=== PATIENT | female | born 1960 | race Caucasian/White ===

== ENCOUNTER 2016-08-27 18:01 | Emergency (ER) | payer SELFPAY ==
[~2016-08-27] VITALS: Ht 157.5 cm; Wt 88.0 kg
[~2016-08-27 18:01] MED LIST: APR50 PO; BENA40TA41 PO; CARV6.2579 PO; CLON0.2T12 PO; DOXY-220 PO; FAMO-95 PO; GABA300C16 PO; HYDR-3498 PO; MIN25 PO; NOVO7030 SC; ONDA-43 PO; RIFA150C2 PO; ZOC20 PO
[2016-08-27 18:56] VITALS: Ht 157.5 cm; Wt 88.0 kg
== END 2016-08-28 00:09 | disposition left against medical advice (07) ==
LOC: E/R 18:01
DX: Z53.21 Procedure and treatment not carried out due to patient leaving prior to being seen by health care provider (principal)

== ENCOUNTER 2017-04-09 13:00 | Emergency (ER) | payer OTHER ==
[~2017-04-09] VITALS: Wt 87.5 kg
[~2017-04-09 13:00] MED LIST changes: -APR50 PO; +HYDR-3672 PO; -MIN25 PO; +MINO2.5T16 PO; +SIMV20TA2 PO; -ZOC20 PO
[2017-04-09] MEDS ORDERED: KETOROLAC 30 MG INJ IV STA (16:37)
[2017-04-09] MEDS ORDERED: ONDANSETRON 4 MG INJ IV STA (16:37)
[2017-04-09] MEDS ORDERED: SOD CHLORIDE 0.9% 1,000 ML IV STA (16:37)
[2017-04-09] MEDS ORDERED: BEN50 PO (18:53)
[2017-04-09] MEDS ORDERED: FOLI-49 PO (18:53)
[2017-04-09] MEDS ORDERED: CALC667C PO (18:53)
[2017-04-09] MEDS ORDERED: CHOL400C11 PO (18:55)
--- NOTE | 2017-04-09 19:28 | ERD ---
ER Documentation Chief Complaint Chief Complaint abd pain rad down into legs HPI This 49-year-old female presents with moderately severe lower abdominal pain that began today. She does not have back pain over the payee radiates down the top of both legs. Taking her blood pressure medication normally. Her blood pressures almost always high. Denies nausea and vomiting. ROS All systems reviewed and are negative except as per history of present illness. Medications Home Meds Active Scripts Hydrocodone/Acetaminophen ([place] 5-325 Tablet) 1 Each Tablet, 1 EACH PO Q6, #10 TAB Prov:NANCY LIM DO 04/09/17 Polyethylene Glycol* (Miralax*) 17 Gm Powd.pack, 17 GM PO DAILY, #7 Prov:NANCY LIM DO 04/09/17 Nitrofurantoin Monohyd Macrocr* (Macrobid*) 100 Mg Capsr, 100 MG PO HS for 5 Days, CAP Prov:NANCY LIM DO 04/09/17 Ciprofloxacin Hcl* (Ciprofloxacin Hcl*) 500 Mg Tablet, 500 MG PO BID for 5 Days , TAB Prov:NANCY LIM DO 04/09/17 Famotidine* (Pepcid* AC) 20 Mg Tab, 20 MG PO DAILY for 28 Days, BOT Prov:LIZET LINARES MD 02/04/15 Reported Medications Tramadol Hcl* (Ultram*) 50 Mg Tablet, 50 MG PO NEEDED Y for PAIN, TAB 04/09/17 Ondansetron Hcl* (Zofran*) 4 Mg Tab, 4 MG PO NEEDED Y for NAUSEA AND OR VOMITING, TAB 04/09/17 Hydralazine Hcl* (Hydralazine Hcl*) 25 Mg Tab, 25 MG PO QID, #60 TAB 04/09/17 Clonidine Hcl* (Clonidine Hcl*) 0.2 Mg Tablet, 0.2 MG PO TID Y for HTN, TAB 04/09/17 Cholecalciferol (Vitamin D3) 400 Unit Capsule, 400 UNIT PO BID, CAP 04/09/17 Diphenhydramine Hcl* (Benadryl*) 50 Mg Cap, 50 MG PO NEEDED Y for ITCHING, CAP 04/09/17 Folic Acid* (Folic Acid*) 1 Mg Tablet, 1 MG PO DAILY, TAB 04/09/17 Calcium Acetate* (Calcium Acetate*) 667 Mg Capsule, 2001 MG PO WITH MEALS, #30 CAP 04/09/17 Benazepril Hcl* (Benazepril Hcl*) 40 Mg Tablet, 40 MG PO DAILY, TAB 12/21/14 Carvedilol* (Carvedilol*) 6.25 Mg Tablet, 6.25 MG PO BID, TAB 12/21/14 Simvastatin (Simvastatin) 20 Mg Tablet, 20 MG PO HS, TAB 12/21/14 Insulin Isophan/Regular (Humulin 70/30) 100 Units/Ml Susp, 20 UNIT SC BID, EA 12/21/14 Gabapentin* (Gabapentin*) 300 Mg Capsule, 300 MG PO TID 08/03/13 Discontinued Reported Medications Hydralazine Hcl* (Hydralazine Hcl*) 50 Mg Tab, 50 MG PO TID, TAB 02/01/15 Discontinued Scripts Ondansetron Hcl* (Zofran*) 4 Mg Tab, 4 MG PO Q4H Y for NAUSEA AND OR VOMITING for 14 Days, TAB Prov:LIZET LINARES MD 02/04/15 Minoxidil* (Lonitin*) 2.5 Mg Tab, 5 MG PO DAILY for 30 Days, TAB Prov:LIZET LINARES MD 02/04/15 Clonidine Hcl* (Catapres*) 0.2 Mg Tab, 0.2 MG PO TID for 28 Days, BOTTLE Prov:LIZET LINARES MD 02/04/15 Hydrocodone Bit-Acetaminophen* ([place]*) 5-325 Mg Tab, 1 TAB PO Q6 Y for severe pain , #40 TAB Prov:MARIAA HERNANDEZ MD 01/24/15 Rifampin* (Rifampin*) 150 Mg Capsule, 150 MG PO BID for MRSA bacteremia , #28 CAP Prov:MARIAA HERNANDEZ MD 01/24/15 Doxycycline Monohydrate* (Doxycycline Monohydrate*) 100 Mg Tablet, 100 MG PO BID for MRSA septic Right shoulder , #28 TAB Prov:MARIAA HERNANDEZ MD 01/24/15 Allergies Allergies: Coded Allergies: amlodipine (Verified Allergy, Unknown, 04/09/17) metformin (Verified Allergy, Unknown, 04/09/17) PMhx/Soc History of Surgery: Yes (APPENDECTOMY, CHOLECYSTECTOMY, PERMA-CATH) Anesthesia Reaction: No Hx Neurological Disorder: Yes (neuropathy ) Hx Respiratory Disorders: No Hx Cardiac Disorders: Yes (HTN, hypercholesterolemia ) Hx Psychiatric Problems: Yes (depression ) Hx Miscellaneous Medical Probl: No Hx Alcohol Use: No Hx Substance Use: No Hx Tobacco Use: No Smoking Status: Never smoker Physical Exam Vitals Vital Signs Date Time Temp Pulse Resp B/P Pulse Ox O2 Delivery O2 Flow Rate FiO2 04/09/17 21:23 60 19 198/75 97 Room Air 04/09/17 20:35 78 18 177/86 98 Room Air 04/09/17 18:30 97.8 69 19 138/72 98 Room Air 04/09/17 16:29 97.3 63 20 141/68 99 Room Air 04/09/17 13:04 98.6 72 20 147/91 98 Physical Exam Const: [] Mild to moderate distress, appears uncomfortable Head: Atraumatic Eyes: Normal Conjunctiva ENT: Normal External Ears, Nose and Mouth. Neck: Full range of motion..~ No meningismus. Resp: Clear to auscultation bilaterally Cardio: Regular rate and rhythm, no murmurs Abd: Soft, tenderness in the mid lower abdomen, left lower quadrant and right lower quadrant, mild voluntary guarding with no rebound, non distended. Normal bowel sounds Skin: No petechiae or rashes Back: No midline or flank tenderness Ext: No cyanosis, or edema Neur: Awake and alert and oriented 3, no focal deficits. Psych: Normal Mood and Affect Result Diagram: 04/09/17174904/09/171749 Results 24 hrs Laboratory Tests Test 04/09/17 16:50 04/09/17 17:50 Urine Color YELLOW Urine Clarity CLEAR Urine pH 7.0 Urine Specific [employer] 1.015 Urine Ketones NEGATIVEmg/dL Urine Nitrite NEGATIVEmg/dL Urine Bilirubin NEGATIVEmg/dL Urine Urobilinogen NEGATIVEmg/dL Urine Leukocyte Esterase TRACELeu/ul Urine Microscopic RBC 4/HPF Urine Microscopic WBC 5/HPF Urine Squamous Epithelial Cells FEW/HPF Urine Hemoglobin 1+mg/dL Urine Glucose 2+mg/dL Urine Total Protein 3+mg/dl White Blood Count 8.410^3/ul Red Blood Count 3.5710^6/ul Hemoglobin 10.8g/dl Hematocrit 35.5% Mean Corpuscular Volume 99.4fl Mean Corpuscular Hemoglobin 30.3pg Mean Corpuscular Hemoglobin Concent 30.4g/dl Red Cell Distribution Width 15.5% Platelet Count 04821^3/UL Mean Platelet Volume 10.4fl Neutrophils % 52.1% Lymphocytes % 35.0% Monocytes % 7.2% Eosinophils % 5.1% Basophils % 0.4% Nucleated Red Blood Cells % 0.0/100WBC Neutrophils # 4.410^3/ul Lymphocytes # 2.910^3/ul Monocytes # 0.610^3/ul Eosinophils # 0.410^3/ul Basophils # 0.010^3/ul Nucleated Red Blood Cells # 0.010^3/ul Sodium Level 140mmol/L Potassium Level 5.5mmol/L Chloride Level 96mmol/L Carbon Dioxide Level 28mmol/L Anion Gap 22 Blood Urea Nitrogen 53mg/dl Creatinine 9.09mg/dl Glucose Level 133mg/dl Calcium Level 9.5mg/dl Total Bilirubin 0.0mg/dl Direct Bilirubin 0.00mg/dl Indirect Bilirubin 0.0mg/dl Aspartate Amino Transf (AST/SGOT) 20IU/L Alanine Aminotransferase (ALT/SGPT) 20IU/L Alkaline Phosphatase 114IU/L Troponin I < 0.012ng/ml Total Protein 7.9g/dl Albumin 4.8g/dl Globulin 3.10g/dl Albumin/Globulin Ratio 1.54 Lipase 149U/L Current Medications Medications (Trade) Dose Ordered Sig/Olivia Route PRN Reason Start Time Stop Time Status Last Admin Dose Admin Sodium Chloride (NS) 1,000 ml @ 1,000 mls/hr Q1H STAT IV 04/09/17 16:37 04/09/17 17:36 DC 04/09/17 16:37 Ondansetron HCl (Zofran Inj) 4 mg ONCE STAT IV 04/09/17 16:37 04/09/17 16:38 DC 04/09/17 16:37 Ketorolac Tromethamine (Toradol) 30 mg ONCE STAT IV 04/09/17 16:37 04/09/17 16:38 DC 04/09/17 16:37 Labetalol HCl (Labetalol) 10 mg ONCE ONCE IV 04/09/17 22:00 04/09/17 22:01 DC 04/09/17 22:06 Procedures/MDM Lower abdominal pain and uncontrolled hypertension. Patient does have mild hyperkalemia and missed dialysis today. Family is present and they are all going to make sure to get her into dialysis tomorrow if possible. Patient does make urine and does have some evidence of urinary tract infection. Has no acute process on CT but does have stool in all parts of colon, I reviewed the patient's EMR and she had a history of possible diabetic gastroparesis in the past. No signs of sepsis. Patient is feeling much better if she was given a liter of normal saline as well as Toradol. Pain decreased drastically. No signs of acute ischemia. She was given labetalol 10 mg to lower her dangerously high blood pressure that would not go down on multiple rechecks. She has not taken her evening blood pressure medications but will do so as soon as she gets home. I am going to discharge her with both Macrobid and Cipro as she likely has a healthcare acquired infection with possible resistance. I am also discharging with [place] for pain as well as MiraLAX. Primary care follow- up on Wednesday as well as dialysis tomorrow. Strict return precautions to the ER EKG interpretation: Sinus bradycardia rate of 58 with first-degree AV block, left axis deviation, no ST or T-wave changes concerning for acute ischemia. CAT scan abdomen pelvis interpretation: I do see stool continuous throughout parts of colon, no obstruction, no free air, no air-fluid levels or abnormal fat stranding, no fractures Departure Diagnosis: Primary Impression: Acute abdominal pain Additional Impressions: UTI (urinary tract infection) Uncontrolled hypertension Hyperkalemia Condition: Stable NANCY LIM DO Apr 09, 2017 19:28
--- NOTE | 2017-04-09 21:19 | RADRPT ---
PROCEDURE: CT Abdomen and Pelvis without contrast. CLINICAL INDICATION: Abdominal pelvic pain. Distension. TECHNIQUE: CT scan of the abdomen and pelvis without contrast was performed on a multi-detector hi gh-resolution CT scanner. The patient was scanned without IV contrast. Coronal and sagittal reformat doris images were obtained from the axial source images. CTDI equals 18.79 mGy, and DLP equals 1182.44 mGy-cm. One or more of the following dose reduction techniques were used: - Automated exposure control. - Adjustment of the mA and/or kV according to patient size. - Use of iterative reconstruction technique. COMPARISON: CT 03/03/2017 FINDINGS: Lower thorax: Clear lung bases. Normal size heart with a small pericardial effusion. Liver: Normal. No focal mass. Biliary: S/P cholecystectomy. No biliary dilatation. Pancreas: Normal. Spleen: Normal. Adrenal Glands: Normal. Genitourinary: Normal. Gastrointestinal: Normal. Lymph nodes: Normal. Vascular: Normal. Peritoneum/mesentery: Normal. No free fluid or free air. Reproductive organs: Normal. Musculoskeletal: Advance multilevel degenerative enthesopathy of the spine. IMPRESSION: 1. Scattered benign chronic senescent changes, stable. 2. No mass, adenopathy, or acute inflammatory process. RPTAT: HMJB .Gerardo Malik MD, Date Time Electronically viewed and signed by .Gerardo Malik MD, MD on 04/09/2017 21:19 .B/
[2017-04-09] MEDS ORDERED: LABETALOL HCL 20MG INJ IV ONE (22:00)
[2017-04-09] MEDS ORDERED: HYDR-3671 PO (22:05)
[2017-04-09] MEDS ORDERED: CLON0.2T5 PO (22:05)
[2017-04-09] MEDS ORDERED: ONDA-43 PO (22:06)
[2017-04-09] MEDS ORDERED: TRAM-40 PO (22:07)
[2017-04-09] MEDS ORDERED: NITR-58 PO (22:09)
[2017-04-09] MEDS ORDERED: POLY17PO6 PO (22:09)
[2017-04-09] MEDS ORDERED: CIPR500T4 PO (22:09)
[2017-04-09] MEDS ORDERED: HYDR-906 PO (22:11)
[2017-04-09 22:34] VITALS: BP 172/82; PULSE 59; RESP 18; TEMP 97.5
== END 2017-04-09 22:43 | disposition home or self-care (01) ==
LOC: E/R 13:00
DX: N39.0 Urinary tract infection, site not specified (principal); I10 Essential (primary) hypertension; E87.5 Hyperkalemia; E11.9 Type 2 diabetes mellitus without complications; Z79.4 Long term (current) use of insulin
CPT/HCPCS: 74176; 80053; 81001; 83690; 84484; 85025; 93005; J1885; J2405; J7030; Z7610; 96374; 96375

== ENCOUNTER 2017-08-02 19:11 | Emergency (ER) | END 2017-08-02 23:50 | disposition home or self-care (01) ==

== ENCOUNTER 2017-10-04 15:50 | Inpatient (IN) | END 2017-10-07 12:30 | disposition home or self-care (01) | DRG 291 ==